=== PATIENT | male | born 1985 | race Two or more races ===

== ENCOUNTER 2020-06-25 17:22 | Emergency (ER) | payer BC ==
[~2020-06-25] VITALS: Ht 188 cm; Wt 95.3 kg
[2020-06-25] MEDS: AZITHROMYCIN 250 MG TABLET PO ONE (17:45)
--- NOTE | 2020-06-25 17:48 | NUR ---
[email or web address], medical screening exam in progress
[2020-06-25] MEDS: DOXYCYCLINE HYCLATE 100 MG TABLET PO ONE (17:58)
[2020-06-25] MEDS ORDERED: DOXYCYCLINE HYCLATE 100 MG TABLET ONE (18:01)
[2020-06-25] MEDS ORDERED: AZITHROMYCIN 250 MG TABLET ONE (18:01)
[2020-06-25] MEDS ORDERED: EMTR1TAB6 PO (18:54)
[2020-06-25] MEDS ORDERED: RALT400T PO (18:54)
[2020-06-25] MEDS ORDERED: DOXY100C41 PO (18:54)
[2020-06-25] MEDS: LAMIVUDINE/ZIDOVUDIN 150-300MG TABLET PO ONE (19:02)
--- NOTE | 2020-06-25 19:03 | NUR ---
Patient discharged to home in stable condition with brisk steady gait. Written and verbal after care instructions given. Patient verbalizes understanding & compliance of instructions. Stressed follow up with your primary doctor or return to ER for worsening s/s.
[2020-06-25] MEDS ORDERED: LAMIVUDINE/ZIDOVUDIN 150-300MG TABLET ONE (19:04)
[2020-06-28 01:06] LABS: *GC NAA Negative (Negative); *TRIC.VAG. NAA Negative (Negative)
== END 2020-06-25 19:04 | disposition home or self-care (01) ==
LOC: ER 17:25
DX: Z20.2 Contact with and (suspected) exposure to infections with a predominantly sexual mode of transmission (principal); Z88.0 Allergy status to penicillin
CPT/HCPCS: 87491; A4663; Q0144